=== PATIENT | male | born 2000 | race Caucasian/White ===

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

== ENCOUNTER 2024-08-19 19:28 | Emergency (ER) | payer BC ==
--- NOTE | 2024-08-19 19:34 | ERPHSYRPT ---
- History of Present Illness Time Seen by Provider: 08/19/24 19:34 Source: patient Exam Limitations: no limitations Physician History: This is a 23-year-old white male patient of Dr. Lo who presents to the emergency department by private vehicle with a complaint of exposure to poison greg now with itchy rash present in bilateral lower extremities buttock and coccyx area. He has no wheezing. He does not have stridor. He has no breathing difficulties. Patient drove himself to the emergency department. Patient has no known drug allergies and he takes no medications chronically. Timing/Duration: day(s) (2) Quality: itchy Severity: mild (To moderate) Location: extremities (Bilateral lower extremities) Possible Causes: poison greg Associated Symptoms: rash Allergies/Adverse Reactions: No Known Drug Allergies Allergy (Unverified 08/19/24 19:41) Hx Tetanus, Diphtheria Vaccination/Date Given: Yes Hx Influenza Vaccination/Date Given: No Hx Pneumococcal Vaccination/Date Given: No Travel Risk - International Travel Have you traveled outside of the country in past 3 weeks: No - Emerging Infectious Disease Are you exhibiting symptoms associated with any current EIDs: No - Review of Systems Constitutional: No Symptoms Eyes: No Symptoms Ears, Nose, & Throat: No Symptoms Respiratory: No Symptoms Cardiac: No Symptoms Abdominal/Gastrointestinal: No Symptoms Genitourinary Symptoms: No Symptoms Musculoskeletal: No Symptoms Skin: Rash (Bilateral lower extremities and buttock region) Neurological: No Symptoms Psychological: No Symptoms Endocrine: No Symptoms Hematologic/Lymphatic: No Symptoms Immunological/Allergic: No Symptoms All Other Systems: Reviewed and Negative - Past Medical History Pertinent Past Medical History: No - Past Surgical History Past Surgical History: No - Social History Smoking Status: Never smoker Exposure to second hand smoke: Yes Drug Use: none Patient Lives Alone: No - Nursing Vital Signs Nursing Vital Signs: Initial Vital Signs Temperature 98.8 F 08/19/24 19:42 Pulse Rate 64 08/19/24 19:42 Respiratory Rate 16 08/19/24 19:42 Blood Pressure 150/102 08/19/24 19:42 O2 Sat by Pulse Oximetry 99 08/19/24 19:42 Pain Scale Pain Intensity 0 - Physical Exam General Appearance: no apparent distress, alert Eye Exam: PERRL/EOMI, eyes nml inspection Ears, Nose, Throat Exam: normal ENT inspection, moist mucous membranes Neck Exam: normal inspection, non-tender, supple, full range of motion Respiratory Exam: normal breath sounds, lungs clear, airway intact, No chest tenderness, No respiratory distress Cardiovascular Exam: regular rate/rhythm, normal heart sounds, normal peripheral pulses Gastrointestinal/Abdomen Exam: soft, normal bowel sounds, No tenderness Rectal Exam: not done Back Exam: normal inspection, normal range of motion, No CVA tenderness, No vertebral tenderness Extremity Exam: normal inspection, normal range of motion, pelvis stable Neurologic Exam: alert, oriented x 3, cooperative, assistant news director II-XII nml as tested, normal mood/affect, nml cerebellar function, nml station & gait, sensation nml Skin Exam: rash (There are patches of slightly raised pink rash bilateral lower extremities and similar in the bilateral buttock region. There are excoriations where the patient had scratched and a few blistered sites. It itches but is not painful) Lymphatic Exam: No adenopathy SpO2 Interpretation: normal O2 Delivery: Room Air - Course Nursing assessment & vital signs reviewed: Yes Ordered Tests: Medication Summary Discontinued Medications Generic Name Dose Route Start Last Admin Trade Name Peyton PRN Reason Stop Dose Admin Diphenhydramine HCl 25 mg 08/19/24 20:04 Diphenhydramine Hcl 25 Mg Capsule PO 08/19/24 20:05 STAT ONE Famotidine 40 mg 08/19/24 20:04 Famotidine 20 Mg Tablet PO 08/19/24 20:05 STAT ONE Prednisone 20 mg 08/19/24 20:05 Prednisone 20 Mg Tablet PO 08/19/24 20:06 STAT ONE - Progress Progress: unchanged Progress Note: 08/19/24 20:10 My medical decision making and the assignment of low complexity to this patient's medical issue today is based on review of the patient's past medical history, review of the patient's medication list, review of patient drug allergy list, history present illness and physical findings on examination. The patient's condition does not require any laboratory or radiographic studies. Differential diagnosis includes hives, contact dermatitis Counseled pt/family regarding: diagnosis, need for follow-up Medical Desision Making - Diagnostic Testing Diagnostic test were ordered, analyzed, and reviewed by me: No - Risk of complications The pt has a mod risk of morbidity or mortality based on: Need for prescription drug management - Departure Departure Disposition: Home Clinical Impression: Contact dermatitis Condition: Stable Critical Care Time: No Referrals: KAREN,KEVIN F [Primary Care Provider, [facility]] - Follow up/PCP as directed Additional Instructions: The rash sites clean with soap and water daily. If you desire you may apply calamine lotion as instructed on the [id number] packaging. In addition, take [id number] Benadryl 25 mg orally 3 times a day for the next 5 days. Call your primary care provider tomorrow, 08/20/2024, to make arrangements for follow-up appointment for further evaluation management. Prescriptions: Prednisone 10 mg [Deltasone 10 mg] 10 mg PO TID #12 tablet Famotidine 20 mg [Pepcid 20 MG] 20 mg PO DAILY #5 tablet
[2024-08-19 19:43] VITALS: TEMP 98.8; O2SAT 99
[2024-08-19] MEDS ORDERED: Pepcid 20 MG ONE ×2 (20:02→20:07)
[2024-08-19] MEDS ORDERED: BENADRYL 25 MG CAPSULE ONE (20:02)
[2024-08-19] MEDS ORDERED: DELTASONE 20 MG ONE (20:03)
[2024-08-19] MEDS: BENADRYL 25 MG CAPSULE PO ONE (20:06)
[2024-08-19] MEDS: Pepcid 20 MG PO ONE (20:07)
[2024-08-19] MEDS: DELTASONE 20 MG PO ONE (20:07)
[2024-08-19 20:26] VITALS: BP 121/74; PULSE 67; RESP 18
== END 2024-08-19 20:20 | disposition home or self-care (01) ==
LOC: ED 19:28
DX: L23.7 Allergic contact dermatitis due to plants, except food (principal); Z79.52 Long term (current) use of systemic steroids; Z79.899 Other long term (current) drug therapy
CPT/HCPCS: 99282; 99283; A9270-GY